=== PATIENT | female | born 1960 | race African-American/Black ===

== ENCOUNTER 2018-06-23 14:40 | Emergency (ER) | payer MEDICAID, OTHER ==
[~2018-06-23] VITALS: Ht 152.4 cm; Wt 89.5 kg
[2018-06-23] MEDS ORDERED: MONT10TA21 PO (14:52)
[2018-06-23] MEDS ORDERED: ACYC200C PO (14:52)
[2018-06-23] MEDS ORDERED: OMEP20 PO (14:53)
[2018-06-23] MEDS ORDERED: ATOR10TA84 PO (14:53)
[2018-06-23] MEDS ORDERED: RISP3 PO (14:53)
[2018-06-23] MEDS ORDERED: AMLO-512 PO (14:53)
[2018-06-23] MEDS ORDERED: METO-558 PO (14:53)
[2018-06-23] MEDS ORDERED: ASPI-556 PO (14:53)
[2018-06-23] MEDS ORDERED: ASPIRIN 325 MG EC TABLET PO ONE (15:45)
[2018-06-23 16:11] LABS: BASOPHILS % (AUTO) 1.1 % (0.0-2.0); EOSINOPHILS % (AUTO) 1.7 % (1.0-6.0); HEMATOCRIT 44.6 % (36-46); HEMOGLOBIN 15.1 g/dL (12.0-16.0); LYMPHOCYTES # (AUTO) 3.7 K/uL (1.0-4.8); LYMPHOCYTES % (AUTO) 35.7 % (22.0-44.0); MEAN CORPUSCULAR HEMOGLOBIN 32.2 pg (26.0-34.0); MEAN CORPUSCULAR HGB CONC 33.8 G/dL (31.0-37.0); MEAN CORPUSCULAR VOLUME 95 fL (80-100); MONOCYTES # (AUTO) 0.8 K/uL (0.1-1.0); MONOCYTES % (AUTO) 7.6 % (2.0-9.0); NEUTROPHILS # (AUTO) 5.5 K/uL (1.8-7.7); NEUTROPHILS % (AUTO) 53.9 % (40.0-70.0); PLATELET COUNT (AUTO) 250 K/uL (150-450); RED BLOOD CELL COUNT(AUTO) 4.68 MIL/uL (4.00-5.20); RED CELL DISTRIBUTION WIDTH 13.5 % (11.5-14.5)
[2018-06-23 16:25] LABS: ANION GAP 10 mmol/L (8-16); CARBON DIOXIDE 25 mmol/L (22-29); CHLORIDE 107 mmol/L (98-107); CREATININE 0.89 mg/dL (0.60-1.30); GLOMERULAR FILTR. RATE CALC > 60 mL/min (>60); GLUCOSE,RANDOM 108 mg/dL (70-110); POTASSIUM 3.2 mmol/L (3.5-5.1); SODIUM SERUM 142 mmol/L (136-145); UREA NITROGEN, BLOOD 9 mg/dL (7-18)
[2018-06-23 16:33] LABS: ALANINE AMINOTRANSFERASE 26 U/L (12-78); ALBUMIN 3.8 g/dL (3.4-5.0); ALKALINE PHOSPHATASE 97 U/L (46-116); ASPARTATE AMINOTRANSFERASE 18 U/L (15-37); BILIRUBIN,TOTAL 0.4 mg/dL (0.1-1.0); TOTAL PROTEIN, SERUM 7.6 g/dL (6.4-8.2)
[2018-06-23] MEDS ORDERED: ACETAMINOPHEN 500 MG TABLET PO ONE (16:45)
[2018-06-23] MEDS ORDERED: BACLOFEN 10 MG TABLET PO ONE (16:45)
[2018-06-23] MEDS ORDERED: POTASSIUM CHLORIDE 20 MEQ ER TABLET PO ONE (17:15)
[2018-06-23 17:40] VITALS: BP 139/79
== END 2018-06-23 18:11 | disposition home or self-care (01) ==
LOC: EMS 14:41
DX: S20.02XA Contusion of left breast, initial encounter (principal); R10.30 Lower abdominal pain, unspecified; W01.0XXA Fall on same level from slipping, tripping and stumbling without subsequent striking against object, initial encounter; Y93.01 Activity, walking, marching and hiking; Y92.89 Other specified places as the place of occurrence of the external cause; Y99.8 Other external cause status; Z88.0 Allergy status to penicillin; Z79.82 Long term (current) use of aspirin; Z79.899 Other long term (current) drug therapy
CPT/HCPCS: 93005; 99285

== ENCOUNTER 2018-07-02 10:58 | Emergency (ER) | payer OTHER ==
[~2018-07-02] VITALS: Ht 152.4 cm; Wt 88.6 kg
[~2018-07-02 10:58] MED LIST: ACYC200C PO; AMLO-512 PO; ASPI-556 PO; ATOR10TA84 PO; METO-558 PO; MONT10TA21 PO; OMEP20 PO; RISP3 PO
[2018-07-02] MEDS ORDERED: NEO/3.5O18 OP (11:09)
[2018-07-02] MEDS ORDERED: TAFL1DRO OP (11:09)
[2018-07-02] MEDS ORDERED: LORA10TA7 PO (11:09)
[2018-07-02] MEDS ORDERED: HYDR-4455 PO (11:09)
[2018-07-02] MEDS ORDERED: IPRA3S NASAL (11:09)
[2018-07-02] MEDS ORDERED: KETOROLAC TROMETHAMINE 10 MG TABLET PO ONE (12:30)
[2018-07-02] MEDS ORDERED: CYCLOBENZAPRINE HCL 10 MG TABLET PO ONE (12:30)
[2018-07-02 12:57] VITALS: BP 141/89
== END 2018-07-02 13:02 | disposition home or self-care (01) ==
LOC: EMS 10:59
DX: G89.29 Other chronic pain (principal); M79.602 Pain in left arm; M79.605 Pain in left leg; F11.20 Opioid dependence, uncomplicated; I10 Essential (primary) hypertension; E78.00 Pure hypercholesterolemia, unspecified; K21.9 Gastro-esophageal reflux disease without esophagitis; Z88.0 Allergy status to penicillin; Z79.899 Other long term (current) drug therapy; W01.0XXA Fall on same level from slipping, tripping and stumbling without subsequent striking against object, initial encounter; Y93.89 Activity, other specified; Y92.89 Other specified places as the place of occurrence of the external cause; Y99.8 Other external cause status

== ENCOUNTER 2018-07-03 10:49 | Emergency (ER) | payer OTHER ==
[~2018-07-03] VITALS: Ht 152.4 cm; Wt 89.1 kg
[~2018-07-03 10:49] MED LIST changes: +HYDR-4455 PO; +IPRA3S NASAL; +LORA10TA7 PO; +NEO/3.5O18 OP; +TAFL1DRO OP
[2018-07-03] MEDS ORDERED: IBUPROFEN 600 MG TABLET PO ONE (11:30)
[2018-07-03 12:00] VITALS: BP 128/84
== END 2018-07-03 12:18 | disposition home or self-care (01) ==
LOC: EMS 10:50
DX: S43.402A Unspecified sprain of left shoulder joint, initial encounter (principal); M79.604 Pain in right leg; M79.605 Pain in left leg; K21.9 Gastro-esophageal reflux disease without esophagitis; E78.00 Pure hypercholesterolemia, unspecified; I10 Essential (primary) hypertension; Z88.0 Allergy status to penicillin; Z79.82 Long term (current) use of aspirin; Z79.899 Other long term (current) drug therapy; W19.XXXA Unspecified fall, initial encounter; Y93.89 Activity, other specified; Y92.512 Supermarket, store or market as the place of occurrence of the external cause; Y99.8 Other external cause status

== ENCOUNTER 2019-09-22 13:23 | Emergency (ER) | payer OTHER ==
[~2019-09-22] VITALS: Ht 152.4 cm; Wt 95.5 kg
[~2019-09-22 13:23] MED LIST changes: -AMLO-512 PO; +AMLO10TA7 PO
[2019-09-22] MEDS ORDERED: DIPH25 PO (15:47)
[2019-09-22] MEDS ORDERED: ACYC200C PO (15:58)
[2019-09-22] MEDS ORDERED: GABA-531 PO (15:58)
[2019-09-22] MEDS ORDERED: FAMO20 PO (15:58)
[2019-09-22] MEDS ORDERED: OLAN10TA3 PO (15:58)
[2019-09-22] MEDS ORDERED: MIRT30 PO (15:58)
[2019-09-22] MEDS ORDERED: TRAZ-257 PO (15:58)
[2019-09-22] MEDS ORDERED: HYDR25TA PO (15:58)
[2019-09-22] MEDS ORDERED: NYSTATIN 15 GM POWDER BOTTLE TP ONE (18:15)
[2019-09-22] MEDS ORDERED: KETOROLAC TROMETHAMINE 30 MG/ML VIAL IM ONE (18:15)
[2019-09-22 19:40] VITALS: BP 113/67
== END 2019-09-22 19:49 | disposition home or self-care (01) ==
LOC: EMS 13:25
DX: B37.2 Candidiasis of skin and nail (principal); M79.605 Pain in left leg; J45.909 Unspecified asthma, uncomplicated; E78.00 Pure hypercholesterolemia, unspecified; I10 Essential (primary) hypertension; G89.29 Other chronic pain; Z79.82 Long term (current) use of aspirin; Z88.0 Allergy status to penicillin
CPT/HCPCS: 93971; 96372; 99284; J1885

== ENCOUNTER 2019-12-16 13:06 | Emergency (ER) | payer OTHER ==
[~2019-12-16] VITALS: Ht 152.4 cm; Wt 93.6 kg
[~2019-12-16 13:06] MED LIST changes: +DIPH25 PO; +FAMO20 PO; +GABA-531 PO; +HYDR-1475 PO; +MIRT30 PO; +OLAN10TA3 PO; +TRAZ-257 PO
[2019-12-16] MEDS ORDERED: PRED5DRO25 OD (13:20)
[2019-12-16] MEDS ORDERED: ALBU8HFA IH (13:20)
[2019-12-16 13:57] LABS: BASOPHILS % (AUTO) 1.1 % (0.0-2.0); EOSINOPHILS % (AUTO) 2.8 % (1.0-6.0); HEMATOCRIT 42.1 % (36-46); HEMOGLOBIN 13.9 g/dL (12.0-16.0); LYMPHOCYTES # (AUTO) 2.2 K/uL (1.0-4.8); LYMPHOCYTES % (AUTO) 24.5 % (22.0-44.0); MEAN CORPUSCULAR HEMOGLOBIN 30.9 pg (26.0-34.0); MEAN CORPUSCULAR VOLUME 94 fL (80-100); MONOCYTES # (AUTO) 0.8 K/uL (0.1-1.0); MONOCYTES % (AUTO) 8.9 % (2.0-9.0); NEUTROPHILS # (AUTO) 5.8 K/uL (1.8-7.7); NEUTROPHILS % (AUTO) 62.7 % (40.0-70.0); PLATELET COUNT (AUTO) 275 K/uL (150-450)
[2019-12-16 14:11] LABS: ANION GAP 9 mmol/L (8-16); CALCIUM, TOTAL 9.9 mg/dL (8.8-10.5); CARBON DIOXIDE 29 mmol/L (22-29); CHLORIDE 105 mmol/L (98-107); CREATININE 0.85 mg/dL (0.60-1.30); GLOMERULAR FILTR. RATE CALC > 60 mL/min (>60); GLUCOSE,RANDOM 110 mg/dL (70-110); POTASSIUM 3.5 mmol/L (3.5-5.1); SODIUM SERUM 143 mmol/L (136-145); UREA NITROGEN, BLOOD 10 mg/dL (7-18)
[2019-12-16 14:35] LABS: ALANINE AMINOTRANSFERASE 28 U/L (12-78); ALBUMIN 3.8 g/dL (3.4-5.0); ALKALINE PHOSPHATASE 83 U/L (46-116); ASPARTATE AMINOTRANSFERASE 18 U/L (15-37); BILIRUBIN,TOTAL 0.4 mg/dL (0.1-1.0); CREATINE KINASE, TOTAL ONLY 121 U/L (26-192); TOTAL PROTEIN, SERUM 7.6 g/dL (6.4-8.2)
[2019-12-16 15:06] VITALS: BP 138/88
== END 2019-12-16 15:07 | disposition home or self-care (01) ==
LOC: EMS 13:07
DX: M79.604 Pain in right leg (principal); M79.605 Pain in left leg; I10 Essential (primary) hypertension; E78.00 Pure hypercholesterolemia, unspecified; J45.909 Unspecified asthma, uncomplicated; Z88.0 Allergy status to penicillin; Z79.82 Long term (current) use of aspirin; Z79.899 Other long term (current) drug therapy
CPT/HCPCS: 85379; 93970

== ENCOUNTER 2019-12-28 15:02 | Emergency (ER) | payer OTHER ==
[~2019-12-28] VITALS: Ht 157.5 cm; Wt 93.6 kg
[~2019-12-28 15:02] MED LIST changes: -ACYC200C PO; +ALBU8HFA IH; -FAMO20 PO; -MIRT30 PO; -MONT10TA21 PO; -NEO/3.5O18 OP; -OLAN10TA3 PO; -OMEP20 PO; +PRED5DRO25 OD; -RISP3 PO; -TRAZ-257 PO
[2019-12-28] MEDS ORDERED: KETOROLAC TROMETHAMINE 60 MG/2 ML VIAL IM ONE (15:45)
[2019-12-28 16:05] VITALS: BP 125/75
== END 2019-12-28 16:20 | disposition home or self-care (01) ==
LOC: EMS 15:13
DX: M79.604 Pain in right leg (principal); M79.10 Myalgia, unspecified site; G89.29 Other chronic pain; J45.909 Unspecified asthma, uncomplicated; E78.00 Pure hypercholesterolemia, unspecified; I10 Essential (primary) hypertension; Z79.82 Long term (current) use of aspirin
CPT/HCPCS: 96372; 99283; J1885

== ENCOUNTER 2020-01-13 12:01 | Emergency (ER) | payer OTHER ==
[~2020-01-13] VITALS: Ht 154.9 cm; Wt 93.6 kg
[2020-01-13 12:05] VITALS: BP 116/67
[2020-01-13] MEDS ORDERED: KETOROLAC TROMETHAMINE 30 MG/ML VIAL IM ONE (12:30)
== END 2020-01-13 13:30 | disposition home or self-care (01) ==
LOC: EMS 12:06
DX: M79.661 Pain in right lower leg (principal); M79.662 Pain in left lower leg; I10 Essential (primary) hypertension; J45.909 Unspecified asthma, uncomplicated; E78.00 Pure hypercholesterolemia, unspecified
CPT/HCPCS: 96372; 99283; J1885

== ENCOUNTER 2020-02-21 18:52 | Emergency (ER) | payer OTHER ==
[~2020-02-21] VITALS: Ht 154.9 cm; Wt 94.1 kg
[~2020-02-21 18:52] MED LIST changes: +GABA-1181 PO; -GABA-531 PO
[2020-02-21] MEDS ORDERED: KETOROLAC TROMETHAMINE 30 MG/ML VIAL IM ONE (20:30)
[2020-02-21 21:17] VITALS: BP 114/68
== END 2020-02-21 21:20 | disposition home or self-care (01) ==
LOC: EMS 18:54
DX: M54.5 Low back pain (principal); G89.29 Other chronic pain; J45.909 Unspecified asthma, uncomplicated; E78.00 Pure hypercholesterolemia, unspecified; I10 Essential (primary) hypertension; Z88.0 Allergy status to penicillin; Z79.82 Long term (current) use of aspirin
CPT/HCPCS: 96372; 99283; J1885

== ENCOUNTER 2020-02-25 23:53 | Emergency (ER) | payer OTHER ==
[~2020-02-25] VITALS: Ht 154.9 cm; Wt 92.3 kg
[2020-02-26 00:43] LABS: BASOPHILS % (AUTO) 0.5 % (0.0-2.0); EOSINOPHILS % (AUTO) 0.1 % (1.0-6.0); HEMATOCRIT 40.2 % (36-46); HEMOGLOBIN 13.1 g/dL (12.0-16.0); LYMPHOCYTES # (AUTO) 1.8 K/uL (1.0-4.8); LYMPHOCYTES % (AUTO) 12.7 % (22.0-44.0); MEAN CORPUSCULAR HEMOGLOBIN 30.4 pg (26.0-34.0); MEAN CORPUSCULAR HGB CONC 32.4 G/dL (31.0-37.0); MEAN CORPUSCULAR VOLUME 94 fL (80-100); MONOCYTES # (AUTO) 1.2 K/uL (0.1-1.0); MONOCYTES % (AUTO) 8.8 % (2.0-9.0); NEUTROPHILS # (AUTO) 10.9 K/uL (1.8-7.7); NEUTROPHILS % (AUTO) 77.9 % (40.0-70.0); PLATELET COUNT (AUTO) 263 K/uL (150-450); RED CELL DISTRIBUTION WIDTH 13.7 % (11.5-14.5)
[2020-02-26 00:59] LABS: PROTHROMBIN TIME 10.4 SEC (9.4-11.6)
[2020-02-26 01:00] LABS: ANION GAP 5 mmol/L (8-16); CARBON DIOXIDE 28 mmol/L (22-29); CHLORIDE 105 mmol/L (98-107); CREATININE 0.98 mg/dL (0.60-1.30); GLOMERULAR FILTR. RATE CALC > 60 mL/min (>60); GLUCOSE,RANDOM 164 mg/dL (70-110); POTASSIUM 3.4 mmol/L (3.5-5.1); SODIUM SERUM 138 mmol/L (136-145); UREA NITROGEN, BLOOD 20 mg/dL (7-18)
[2020-02-26 01:06] LABS: ALANINE AMINOTRANSFERASE 24 U/L (12-78); ALBUMIN 3.6 g/dL (3.4-5.0); ALKALINE PHOSPHATASE 111 U/L (46-116); ASPARTATE AMINOTRANSFERASE 10 U/L (15-37); BILIRUBIN,TOTAL 0.2 mg/dL (0.1-1.0); TOTAL PROTEIN, SERUM 7.2 g/dL (6.4-8.2)
[2020-02-26 01:16] LABS: B-TYPE NATRIURETIC PEPTIDE 8 pg/mL (0-100)
[2020-02-26 01:34] LABS: GLUCOMETER DEV NAME(LOC) AHU.; GLUCOSE,POINT OF CARE 156 MG/DL (70-110)
[2020-02-26 01:45] LABS: APPEARANCE,URINE CLEAR (CLEAR); BILIRUBIN,URINE NEGATIVE (NEGATIVE); GLUCOSE, URINE (UA) NEGATIVE (NEGATIVE); KETONES,URINE NEGATIVE (NEGATIVE); LEUKOCYTE ESTERASE ,URINE NEGATIVE (NEGATIVE); NITRATE,URINE NEGATIVE (NEGATIVE); OCCULT BLOOD,URINE NEGATIVE (NEGATIVE); PROTEIN,URINE NEGATIVE (NEGATIVE); UROBILINOGEN,URINE 0.2 mg/dL (<=1.0)
[2020-02-26 01:52] LABS: LIPASE 69 U/L (73-393)
[2020-02-26] MEDS ORDERED: POTASSIUM CHLORIDE 20 MEQ ER TABLET PO ONE (02:15)
[2020-02-26] MEDS ORDERED: SODIUM CHLORIDE 0.9% 1,000 ML IV ONE (02:15)
[2020-02-26] MEDS ORDERED: KETOROLAC TROMETHAMINE 30 MG/ML VIAL IVP ONE (02:45)
[2020-02-26 04:00] VITALS: BP 126/79
== END 2020-02-26 04:15 | disposition home or self-care (01) ==
LOC: EMS 23:53
DX: A05.9 Bacterial foodborne intoxication, unspecified (principal); R42 Dizziness and giddiness; R00.2 Palpitations; M79.605 Pain in left leg; M79.604 Pain in right leg; G89.29 Other chronic pain; J45.909 Unspecified asthma, uncomplicated; E78.00 Pure hypercholesterolemia, unspecified; I10 Essential (primary) hypertension; Z79.82 Long term (current) use of aspirin; Z88.0 Allergy status to penicillin
CPT/HCPCS: 36415; 71045; 80053; 81003; 82962; 83690; 83880; 84484; 85025; 85610; 85730; 93005; 96361; 96374; 99285; J1885; J7030

== ENCOUNTER 2020-02-29 23:04 | Emergency (ER) | payer OTHER ==
[~2020-02-29] VITALS: Ht 154.9 cm; Wt 92.3 kg
[2020-02-29] MEDS ORDERED: TRAZ-257 PO (23:29)
[2020-02-29] MEDS ORDERED: QUET100T PO (23:29)
[2020-03-01 01:26] LABS: BASOPHILS % (AUTO) 0.7 % (0.0-2.0); HEMATOCRIT 41.8 % (36-46); HEMOGLOBIN 13.6 g/dL (12.0-16.0); LYMPHOCYTES # (AUTO) 3.5 K/uL (1.0-4.8); LYMPHOCYTES % (AUTO) 23.5 % (22.0-44.0); MEAN CORPUSCULAR HEMOGLOBIN 30.5 pg (26.0-34.0); MEAN CORPUSCULAR HGB CONC 32.6 G/dL (31.0-37.0); MEAN CORPUSCULAR VOLUME 94 fL (80-100); MONOCYTES # (AUTO) 1.1 K/uL (0.1-1.0); MONOCYTES % (AUTO) 7.7 % (2.0-9.0); NEUTROPHILS % (AUTO) 67.1 % (40.0-70.0); PLATELET COUNT (AUTO) 267 K/uL (150-450); RED BLOOD CELL COUNT(AUTO) 4.46 MIL/uL (4.00-5.20); RED CELL DISTRIBUTION WIDTH 13.9 % (11.5-14.5)
[2020-03-01 01:28] LABS: ANION GAP 11 mmol/L (8-16); CALCIUM, TOTAL 9.3 mg/dL (8.8-10.5); CARBON DIOXIDE 28 mmol/L (22-29); CHLORIDE 103 mmol/L (98-107); CREATININE 0.86 mg/dL (0.60-1.30); GLOMERULAR FILTR. RATE CALC > 60 mL/min (>60); GLUCOSE,RANDOM 159 mg/dL (70-110); POTASSIUM 3.4 mmol/L (3.5-5.1); SODIUM SERUM 142 mmol/L (136-145); UREA NITROGEN, BLOOD 20 mg/dL (7-18)
[2020-03-01 01:33] LABS: ALANINE AMINOTRANSFERASE 22 U/L (12-78); ALBUMIN 3.7 g/dL (3.4-5.0); ALKALINE PHOSPHATASE 122 U/L (46-116); ASPARTATE AMINOTRANSFERASE 12 U/L (15-37); BILIRUBIN,TOTAL 0.3 mg/dL (0.1-1.0); TOTAL PROTEIN, SERUM 7.6 g/dL (6.4-8.2)
[2020-03-01 03:15] VITALS: BP 129/68
== END 2020-03-01 03:40 | disposition home or self-care (01) ==
LOC: EMS 23:04
DX: R53.1 Weakness (principal); I10 Essential (primary) hypertension; E78.00 Pure hypercholesterolemia, unspecified; J45.909 Unspecified asthma, uncomplicated; Z88.0 Allergy status to penicillin; Z79.82 Long term (current) use of aspirin; Z79.899 Other long term (current) drug therapy
CPT/HCPCS: 36415; 80053; 84484; 85025; 93005; 99285; G0480

== ENCOUNTER 2021-07-25 10:04 | Emergency (ER) | payer OTHER ==
[~2021-07-25] VITALS: Ht 154.9 cm; Wt 97.7 kg
[~2021-07-25 10:04] MED LIST changes: +AMLO-258 PO; -AMLO10TA7 PO; -HYDR-1475 PO; +HYDR25TA2 PO; +QUET100T PO; +TRAZ-257 PO
[2021-07-25] MEDS: IBUPROFEN 600 MG TABLET PO ONE (11:11)
[2021-07-25 11:20] VITALS: BP 159/84
== END 2021-07-25 12:15 | disposition home or self-care (01) ==
LOC: EMS 10:05
DX: S93.402A Sprain of unspecified ligament of left ankle, initial encounter (principal); I10 Essential (primary) hypertension; M19.90 Unspecified osteoarthritis, unspecified site; E78.00 Pure hypercholesterolemia, unspecified; W10.8XXA Fall (on) (from) other stairs and steps, initial encounter; Y93.89 Activity, other specified; Y92.89 Other specified places as the place of occurrence of the external cause; Y99.8 Other external cause status
CPT/HCPCS: 99284